=== PATIENT | female | born 1995 | race Hispanic/Latino ===

== ENCOUNTER 2021-01-01 16:09 | Emergency (ER) | payer OTHER ==
[2021-01-01] MEDS ORDERED: Boostrix 0.5 ML (Tdap) VIAL ONE (16:30)
[2021-01-01] MEDS ORDERED: Lidocaine 1% (PF) 30 ML VIAL ONE (16:31)
[2021-01-01] MEDS ORDERED: Bacitracin 1 PK ONE (17:16)
== END 2021-01-01 17:34 | disposition home or self-care (01) ==
LOC: NAV ERS 16:09
DX: S61.011A Laceration without foreign body of right thumb without damage to nail, initial encounter (principal); Z23 Encounter for immunization; W26.8XXA Contact with other sharp object(s), not elsewhere classified, initial encounter
CPT/HCPCS: 12002; 90471; 90715; J2001